=== PATIENT | female | born 1990 | race Native Hawaiian/Other Pacific Islander ===

== ENCOUNTER 2017-04-24 13:50 | Inpatient (IN) | payer MEDICAID ==
[2017-04-24] MEDS ORDERED: XYLOCAINE 2% INFILTRATI ONE (14:40)
[2017-04-24] MEDS ORDERED: PHENERGAN PO PRN ×2 (14:40→18:52)
[2017-04-24] MEDS ORDERED: BRETHINE SUB-Q PRN (14:40)
[2017-04-24] MEDS ORDERED: BRETHINE IVP PRN (14:40)
[2017-04-24] MEDS ORDERED: SUBLIMAZE IV PRN (14:40)
[2017-04-24] MEDS ORDERED: MINERAL OIL PO PRN (14:40)
[2017-04-24] MEDS ORDERED: NARCAN 0.4 MG/1 ML IV PRN (14:40)
[2017-04-24] MEDS ORDERED: ePHEDrine SULFATE IV PRN ×2 (14:40→15:54)
[2017-04-24] MEDS ORDERED: STADOL IV PRN (14:40)
[2017-04-24] MEDS ORDERED: ZOFRAN IV PRN ×2 (14:40→18:52)
--- NOTE | 2017-04-24 14:57 | History and Physical Report ---
History of Present Illness Date of examination: 04/24/17 Date of admission: 04/24/17 13:51 Chief complaint: contractions History of present illness: This is a a 26 yo at 38+6 weeks came into triage c/o contractions. Patient was seen in clinic this week and noted to be 1cm. The nurse Nesha checked patient and noted to be 5/90/-2 contractig every 2-3 min. She has been a patietn of premier since 9 weeks. She has had growth scans for obesity. 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 denies: smoking, prescription drug abuse - Obstetrical History Expected Date of Delivery: 05/02/17 Actual Gestation: 38 Week(s) 6 Day(s) : 2 Para: 1 Hx # Term Pregnancies: 1 Number of Pregnancies: 0 Spontaneous Abortions: 0 Induced : 0 Number of Living Children: 1 Medications and Allergies Allergies Allergy/AdvReac Type Severity Reaction Status Date / Time No Known Allergies Allergy Unverified 04/24/17 14:20 Active Meds: Active Medications Butorphanol Tartrate (Stadol) 2 mg IV Q2H PRN PRN Reason: Pain , Severe (7-10) Ephedrine Sulfate (Ephedrine Sulfate) 10 mg IV Q2M PRN PRN Reason: Hypotension Fentanyl (Sublimaze) 100 mcg IV Q2H PRN PRN Reason: Labor Pain Lactated Ringer's (Lactated Ringers) 1,000 mls @ 125 mls/hr IV DIRECT DELORIS Lactated Ringer's (Lactated Ringers) 1,000 mls @ 125 mls/hr IV DIRECT DELORIS Oxytocin/Sodium Chloride (Pitocin/Ns 20 Unit/1000ml Drip) 20 units in 1,000 mls @ 125 mls/hr IV DIRECT DELORIS Oxytocin/Sodium Chloride (Pitocin/Ns 30 Unit/500ml) 30 units in 500 mls @ 0 mls /hr IV TITR DELORIS; As Directed PRN Reason: Protocol Oxytocin/Sodium Chloride (Pitocin/Ns 30 Unit/500ml) 30 units in 500 mls @ 1 mls /hr IV TITR DELORIS; 1 MILLIUNITS/MIN PRN Reason: Protocol Mineral Oil (Mineral Oil) 30 ml PO QHS PRN PRN Reason: Constipation Naloxone HCl (Narcan 0.4 Mg/1 Ml) 0.1 mg IV Q2MIN PRN PRN Reason: Res Rate </= 8 or 02 SAT < 92% Ondansetron HCl (Zofran) 4 mg IV Q8H PRN PRN Reason: Nausea And Vomiting Promethazine HCl (Phenergan) 25 mg PO Q6H PRN PRN Reason: Nausea And Vomiting Terbutaline Sulfate (Brethine) 0.25 mg SUB-Q ONCE PRN PRN Reason: Hyperstimulation/Hypertonicity Terbutaline Sulfate (Brethine) 0.25 mg IVP ONCE PRN PRN Reason: Hyperstimulation/Hypertonicity Review of Systems All systems: negative Genitourinary: contractions - Vital Signs Vital signs: Vital Signs Pulse BP 85 129/83 04/24/17 14:22 04/24/17 14:22 Temp Pulse Resp BP Pulse Ox 85 129/83 04/24/17 14:22 04/24/17 14:22 - Physical Exam Breasts: Positive: normal Cardiovascular: Regular rate, Normal S1 Lungs: Positive: Clear to auscultation, Normal air movement Abdomen: Positive: normal appearance, soft, normal bowel sounds. Negative: distention, tenderness, guarding Genitourinary (Female): Positive: normal external genitalia, normal perenium Vulva: both: normal Vagina: Positive: normal moisture Uterus: Positive: normal size Anus/Rectum: Positive: normal perianal skin Extremities: Positive: normal Deep Tendon Reflex Grade: Normal +2 - Obstetrical FHR: category 1 Uterine Contraction Monitor Mode: External Cervical Dilatation: 5 Cervical Effacement Percentage: 90 station: -2 Uterine Contraction Pattern: Regular Uterine Tone Measurement Phase: Contraction Uterine Contraction Intensity: Moderate Results All other labs normal. Assessment and Plan A/P HD#1 Active labor GBS neg no abx required IVF, labs continuous monitoring offer epidural expect vaginal delivery
[2017-04-24] MEDS ORDERED: PITOCin/NS 30 UNIT/500ML 30 UNITS/500 ML BAG IV SCH ×2 (15:00)
[2017-04-24] MEDS ORDERED: PITOCin/NS 20 UNIT/1000ML DRIP 20 UNITS/1,000 ML BAG IV SCH ×2 (15:00→19:00)
[2017-04-24] MEDS ORDERED: LACTATED RINGERS 1,000 ML IV SCH ×2 (15:00)
[2017-04-24 15:39] LABS: Basophils % (Auto) 0.3 % (0.0-1.8); Eosinophils # (Auto) 0.1 K/mm3 (0.0-0.4); Eosinophils % (Auto) 0.9 % (0.0-4.3); Hematocrit 37.8 % (30.3-42.9); Hemoglobin 12.4 gm/dl (10.1-14.3); Lymphocytes # (Auto) 3.2 K/mm3 (1.2-5.4); Lymphocytes % (Auto) 22.7 % (13.4-35.0); Mean Corpuscular HGB Conc 33 % (30-34); Mean Corpuscular Volume 79 fl (79-97); Monocytes # (Auto) 0.8 K/mm3 (0.0-0.8); Monocytes % (Auto) 5.7 % (0.0-7.3); Platelet Count 302 K/mm3 (140-440)
[2017-04-24 15:40] LABS: Mean Corpuscular Hemoglobin 26 pg (28-32)
[2017-04-24] MEDS ORDERED: NARCAN 2 MG/2 ML IV PRN (15:54)
[2017-04-24] MEDS ORDERED: fentaNYL-BUPIV 2 MCG/ML-0.125% 200 MCG/100 ML BAG EPIDURAL SCH (17:00)
[2017-04-24] MEDS ORDERED: TUCKS PAD TP PRN (18:52)
[2017-04-24] MEDS ORDERED: TORADOL IV PRN (18:52)
[2017-04-24] MEDS ORDERED: PERCOCET 5/325 PO PRN (18:52)
[2017-04-24] MEDS ORDERED: BENADRYL PO PRN (18:52)
[2017-04-24] MEDS ORDERED: MILK OF MAGNESIA PO PRN (18:52)
[2017-04-24] MEDS ORDERED: NORCO 5/325 PO PRN (18:52)
[2017-04-24] MEDS ORDERED: DULCOLAX PR PRN (18:52)
[2017-04-24] MEDS ORDERED: PHENERGAN PR PRN (18:52)
[2017-04-24] MEDS ORDERED: LANSINOH TP PRN (18:52)
[2017-04-24] MEDS ORDERED: TYLENOL PO PRN (18:52)
--- NOTE | 2017-04-24 18:52 | Procedure Note ---
OB Delivery Note - Delivery Date of Delivery: 04/24/17 Surgeon: LACHO LU Estimated blood loss: 200cc - Vaginal Delivery presentation: vertex Delivery position: OA Intrapartum events: none Delivery augmentation: rupture of membranes, pitocin Delivery monitor: external FHT, external uterine Route of delivery: Delivery placenta: spontaneous Delivery cord: nuchal cord Episiotomy: none Delivery laceration: none Anesthesia: none Delivery comments: patient was noted to be c/c/+1 and commenced to pushing a viable female with easily delivery of shoulders at 1836. A nuchal cord was reduced prior to delivery after head. The placenta delivered at 1838 intact with 3 vessel cord. the weight of the baby is 7 pounds and 3 oz. No lacerations noted. baby and mom bonding well. EBL 200 cc. Patient tolerated procedure well.
[2017-04-24] MEDS ORDERED: MOTRIN PO SCH (19:00)
[2017-04-24] MEDS ORDERED: SODIUM CHLORIDE FLUSH SYRINGE 10 ML IV SCH (19:00)
[2017-04-24] MEDS: COLACE PO SCH (23:49)
[2017-04-24] MEDS: SENOKOT S PO SCH (23:49)
[2017-04-25] MEDS: MOTRIN PO SCH ×4 (05:20→23:08)
[2017-04-25] MEDS ORDERED: BOOSTRIX IM ONE (06:00)
--- NOTE | 2017-04-25 09:12 | Progress Note ---
Assessment and Plan A/P PPD#1 doing well VSS ambulating and bleeding decreased routine PP care Subjective - Subjective Date of service: 04/25/17 Principal diagnosis: s/p Interval history: This is a a 26 yo at 38+6 weeks came into triage c/o contractions. Patient was seen in clinic this week and noted to be 1cm. The nurse Nesha checked patient and noted to be 5/90/-2 contractig every 2-3 min. She has been a patietn of premier since 9 weeks. She has had growth scans for obesity. 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 No further problems during this GBS neg cultures neg 04/01/17 A+ Antibody neg H/H 12.8/40.5 Rubella IMM RPR neg Hep neg HIV neg Plts 323 sickle neg g/c neg declined MSAFP DM 106 Patient reports: appetite normal, voiding normally, pain well controlled, flatus , ambulating normally [place]: doing well Objective - Vital Signs Latest vital signs: Vital Signs Temp Pulse Resp BP BP Pulse Ox 04/25/17 04:30 98.6 F 66 16 104/69 04/24/17 23:30 98.6 F 66 16 114/76 04/24/17 20:15 98.6 F 66 16 101/76 04/24/17 20:02 92 H 128/68 04/24/17 19:47 99 H 96 04/24/17 19:46 93 H 90 04/24/17 19:45 86 138/69 04/24/17 19:42 82 99 04/24/17 19:37 81 124/58 98 04/24/17 19:15 84 136/87 04/24/17 19:08 97.0 F L 20 04/24/17 19:00 86 124/67 04/24/17 18:45 101 H 107/53 04/24/17 18:35 96 H 111/72 04/24/17 18:33 114 H 98 04/24/17 18:28 108 H 99 04/24/17 18:23 98 H 98 04/24/17 18:18 83 97 04/24/17 18:13 80 98 04/24/17 18:08 92 H 98 04/24/17 18:05 82 110/70 02/16/18 18:03 86 97 02/16/18 17:58 87 98 02/16/18 17:53 94 H 99 02/16/18 17:48 91 H 98 02/16/18 17:43 97 H 97 02/16/18 17:38 113 H 99 02/16/18 17:34 92 H 116/62 02/16/18 17:33 101 H 98 02/16/18 17:28 90 98 02/16/18 17:23 99 H 98 02/16/18 17:18 102 H 98 02/16/18 17:13 102 H 99 02/16/18 17:08 98 H 98 02/16/18 17:03 111 H 119/62 97 02/16/18 16:58 114 H 98 02/16/18 16:53 128 H 98 02/16/18 16:48 121 H 98 02/16/18 16:44 104 H 145/65 02/16/18 16:43 102 H 98 02/16/18 16:41 89 113/66 02/16/18 16:38 104 H 98 02/16/18 16:33 103 H 124/74 97 02/16/18 16:31 96 H 125/82 02/16/18 16:28 98 H 97 02/16/18 16:27 101 H 119/68 02/16/18 16:24 99 H 125/80 02/16/18 16:23 101 H 97 02/16/18 16:22 96 H 117/75 02/16/18 16:21 94 H 120/80 02/16/18 16:18 98 H 121/84 98 02/16/18 16:16 96 H 117/82 02/16/18 16:15 92 H 118/79 02/16/18 16:13 93 H 122/81 96 02/16/18 16:08 99 H 96 02/16/18 16:07 94 H 94 02/16/18 16:03 91 H 96 02/16/18 16:02 93 H 134/85 02/16/18 15:59 92 H 94 02/16/18 15:58 97 H 97 02/16/18 15:53 107 H 92 02/16/18 15:48 92 H 96 02/16/18 15:45 88 94 02/16/18 15:43 100 H 96 02/16/18 15:38 95 H 95 04/24/17 15:34 97.9 F 16 04/24/17 15:33 85 97 04/24/17 15:31 79 94 04/24/17 15:28 87 95 04/24/17 15:25 81 94 04/24/17 15:23 80 93 04/24/17 15:20 83 94 04/24/17 15:19 77 132/88 04/24/17 15:18 88 95 04/24/17 15:15 16 04/24/17 14:22 85 129/83 Intake and Output 04/24/17 04/25/17 04/25/17 23:59 07:59 15:59 Intake Total 300 300 Output Total 700 1000 Balance -400 -700 Intake: Intake, Free Water 300 300 Output: Urine 700 1000 Indwelling Catheter 100 Void 600 1000 Other: Total, Output Amount 600 600 # Voids Void 1 Estimated Blood Loss 200 - Exam Breasts: Present: normal Cardiovascular: Present: Regular rate, Normal S1 Lungs: Present: Clear to auscultation, Normal air movement Abdomen: Present: normal appearance, soft, normal bowel sounds. Absent: distention, tenderness, guarding Vulva: both: normal Uterus: Present: normal, firm, fundal height below umbilicus. Absent: bogginess , tenderness Extremities: Present: normal Deep Tendon Reflex Grade: Normal +2 - Labs Labs: Abnormal lab results 04/24/17 Range/Units 14:50 WBC 14.3 H (4.5-11.0) K/mm3 MCH 26 L (28-32) pg Seg Neutrophils % 70.4 H (40.0-70.0) % Seg Neutrophils # 10.1 H (1.8-7.7) K/mm3
--- NOTE | 2017-04-25 09:17 | Discharge Summary ---
Providers - Providers Date of Admission: 04/24/17 13:51 Date of discharge: 04/25/17 Attending physician: LACHO LU MD Primary care physician: LACHO LU MD Hospitalization Reason for admission: active labor Delivery: Episiotomy: none Laceration: none Incision: normal Other procedures: none Discharge diagnosis: IUP at term delivered baby: female Condition at discharge: Good Disposition: DC-01 TO HOME OR SELFCARE Plan - Discharge Medications Prescriptions: Ferrous Sulfate 325 mg PO BID #30 tablet. HYDROcodone/ACETAMINOPHEN [[place] 5-325 Tablet] 1 each PO Q6HR #30 tablet Ibuprofen [Motrin] 600 mg PO Q8H PRN #30 tablet PRN Reason: Pain - Provider Discharge Summary Activity: routine, no sex for 6 weeks Diet: routine Instructions: routine Additional instructions: [] Smoking cessation referral if applicable(refer to patient education folder for contact #) [] Refer to [facility] Booklet Call your doctor immediately for: * Fever > 100.5 * Heavy vaginal bleeding ( >1 pad per hour) * Severe persistent headache * Shortness of breath * Reddened, hot, painful area to leg or breast * Drainage or odor from incision. * Keep incision clean and dry at all times and follow doctor's instructions regarding bathing/showering - Follow up plan Follow up: LACHO LU MD [Primary Care Provider] - 05/25/17
[2017-04-25] MEDS ORDERED: PRENATAL VITAMIN PO SCH (10:00)
[2017-04-25] MEDS: MUCINEX ER PO SCH ×2 (12:51→23:08)
[2017-04-25] MEDS ORDERED: M-M-R II VACCINE SUB-Q ONE (18:52)
[2017-04-25] MEDS: COLACE PO SCH (23:14)
[2017-04-25] MEDS: SENOKOT S PO SCH (23:15)
[2017-04-26] MEDS: MOTRIN PO SCH (05:09)
[2017-04-26 10:50] VITALS: BP 119/73
== END 2017-04-26 11:00 | disposition home or self-care (01) | DRG 775 ==
LOC: TRG 13:50 → LD 13:51 → TRG 13:51 → OB 20:16
PROVIDERS: ADMIT Obstetrics & Gynecology; ATTEND Obstetrics & Gynecology
PROC: 10E0XZZ Delivery of Products of Conception, External Approach (ICD-10-PCS; principal; 2017-04-24)
PROC: 3E0234Z Introduction of Serum, Toxoid and Vaccine into Muscle, Percutaneous Approach (ICD-10-PCS; 2017-04-25)
DX: O69.1XX0 Labor and delivery complicated by cord around neck, with compression, not applicable or unspecified (principal); O99.214 Obesity complicating childbirth; E66.9 Obesity, unspecified; Z37.0 Single live birth; Z90.49 Acquired absence of other specified parts of digestive tract; Z68.41 Body mass index [BMI] 40.0-44.9, adult; Z83.3 Family history of diabetes mellitus; Z82.49 Family history of ischemic heart disease and other diseases of the circulatory system; Z80.8 Family history of malignant neoplasm of other organs or systems; Z3A.38 38 weeks gestation of pregnancy; Z80.3 Family history of malignant neoplasm of breast; Z23 Encounter for immunization
CPT/HCPCS: 36415; 85014; 85018; 85025; 86592; 86850; 86900; 86901; 90471; 90715; A6250; J0595; J2590; J7120